=== PATIENT | female | born 1985 | race Caucasian/White ===

== ENCOUNTER → 2020-09-15 | Outpatient (CLI) | payer BC ==
--- NOTE | 2020-09-15 08:49 | MM ---
Reason for exam: clinical finding. Baseline mammogram. History: Family history of breast cancer in maternal grandmother at age 50. Taking hormonal contraceptives beginning at age 15. Physical Findings: Nurse did not find any significant physical abnormalities on exam. MG Diagnostic Mammo w CAD BLANCA Bilateral CC and MLO view(s) were taken. The breast tissue is heterogeneously dense. This may lower the sensitivity of mammography. There is no discrete abnormality including area of concern left nipple region. These results were verbally communicated with the patient and result sheet given to the patient on 09/15/20. ASSESSMENT: Benign, BI-RAD 2 RECOMMENDATION: Routine screening mammogram of both breasts at age 40. Manage on a clinical basis with regard to nipple changes.
== END | disposition home or self-care (01) ==
LOC: RADMAMWWP 07:07
PROVIDERS: ATTEND Obstetrics & Gynecology Obstetrics
DX: Z80.3 Family history of malignant neoplasm of breast (principal)
CPT/HCPCS: 77066

== ENCOUNTER 2021-01-25 09:42 | Emergency (ER) | payer BC ==
[2021-01-25 09:47] VITALS: BP 132/87; PULSE 82; RESP 16; TEMP 98.6
[2021-01-25] MEDS ORDERED: ORPHENADRINE 30 MG/ML 2 ML VIAL IM STA (10:18)
[2021-01-25] MEDS ORDERED: HYDROmorphone 1 MG/ML 1 ML SYRINGE IM STA (10:19)
--- NOTE | 2021-01-25 10:24 | ED ---
Neck Injury/Pain HPI - General Chief Complaint: Neck Pain/Injury Stated Complaint: neck pain Source: patient, RN notes reviewed Mode of arrival: ambulatory Limitations: no limitations - History of Present Illness Initial Comments: 35-year-old white female, alert and oriented 4, presents to the emergency room with complaints of neck pain since December 19. Patient states that she seen her primary care doctor and was prescribed steroids however she states that the muscles are still very tight in her neck and it makes it difficult to sit or get comfortable. She states that she started the steroids yesterday. She also seen a chiropractor yesterday and was told to come to the emergency room for evaluation. Patient was also placed on gabapentin by her primary care Dr. Garcia but states that she still has 10 out of 10 pain. She denies any injuries. No fevers, nausea vomiting or diarrhea. She has no chest pain or shortness of breath. 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 ROS Other: All systems not noted in ROS Statement are negative. Past Medical History Past Medical History: Thyroid Disorder History of Any Multi-Drug Resistant Organisms: None Reported Past Surgical History: Cholecystectomy Past Psychological History: Anxiety, Depression Smoking Status: Never smoker Past Alcohol Use History: Occasional Past Drug Use History: Marijuana General Exam Limitations: no limitations General appearance: alert, in no apparent distress Head exam: Present: atraumatic, normocephalic, normal inspection Eye exam: Present: normal appearance, PERRL, EOMI. Absent: scleral icterus, conjunctival injection, periorbital swelling Pupils: Present: normal accommodation ENT exam: Present: normal exam, normal oropharynx, mucous membranes moist Neck exam: Present: normal inspection, tenderness (Paraspinal), full ROM (Limited by pain). Absent: meningismus, lymphadenopathy, thyromegaly Respiratory exam: Present: normal lung sounds bilaterally. Absent: respiratory distress, wheezes, rales, rhonchi, stridor, chest wall tenderness, accessory muscle use, decreased breath sounds Cardiovascular Exam: Present: regular rate, normal rhythm, normal heart sounds. Absent: systolic murmur, diastolic murmur, rubs, gallop, clicks, JVD GI/Abdominal exam: Present: soft, normal bowel sounds. Absent: distended, tenderness, guarding, rebound, rigid Extremities exam: Present: normal inspection, full ROM, normal capillary refill. Absent: tenderness, pedal edema, joint swelling, calf tenderness Back exam: Present: normal inspection, full ROM, muscle spasm, paraspinal tenderness. Absent: CVA tenderness (R), CVA tenderness (L), vertebral tenderness Neurological exam: Present: alert, oriented X3, CN II-XII intact Psychiatric exam: Present: normal affect, normal mood Skin exam: Present: warm, dry, intact, normal color. Absent: rash, cyanosis, diaphoretic, erythema, petechiae, pallor, mottled Course Vital Signs 01/25/21 09:45 Temperature 98.6 F Pulse Rate 82 Respiratory 16 Rate Blood Pressure 132/87 O2 Sat by Pulse 99 Oximetry Medical Decision Making - Medical Decision Making Patient has no focal neurological deficits. She has a steady gait. She denies any saddle anesthesia or bowel or bladder incontinence. She has no fevers and no recent surgeries. She denies any trauma or history of cancer. She has been seen by her primary care doctor and prescribed steroids which she has just started yesterday. I believe this is musculoskeletal in nature as patient has paraspinal tightness. She was given a muscle relaxer and pain shot and will be prescribed Flexeril and Tylenol #3 for pain relief. She will be directed to follow up with her primary care doctor and also given a referral to orthopedics. Patient is agreeable to this plan of care. Case discussed with Dr. Madden Disposition Clinical Impression: Neck pain Disposition: HOME SELF-CARE Condition: Fair Instructions (If sedation given, give patient instructions): Neck Pain (ED) Additional Instructions: Take medication as prescribed and follow-up with the primary care doctor. Continue your steroids as prescribed by Dr. Garcia. Return if any fevers, incontinence of bowel or bladder, or increased pain. Prescriptions: Cyclobenzaprine [Flexeril] 10 mg PO TID PRN #15 tab PRN Reason: Muscle Spasm Is patient prescribed a controlled substance at d/c from ED?: No Referrals: Supriya Garcia MD [Primary Care Provider] - 1-2 days Jaswant Baker PAC [PHYSICIAN [employer]OM[employer] HEAD] - 1-2 days Time of Disposition: 11:20
[2021-01-25] MEDS ORDERED: ACET/COD 300 MG/30 MG STARTER PACK 6 TAB BTL PO STA (10:30)
== END 2021-01-25 11:20 | disposition home or self-care (01) ==
LOC: EC 09:42
DX: M54.2 Cervicalgia (principal); F32.9 Major depressive disorder, single episode, unspecified; F12.90 Cannabis use, unspecified, uncomplicated; Z90.49 Acquired absence of other specified parts of digestive tract
CPT/HCPCS: 99283; 96372 ×2; J2360; J1170

== ENCOUNTER 2023-04-27 17:52 | Emergency (ER) | payer BC ==
[2023-04-27 18:29] VITALS: BP 108/102; PULSE 100; RESP 20; TEMP 98
[2023-04-28] MEDS ORDERED: LORazepam 1 MG TAB PO STA (00:48)
--- NOTE | 2023-04-28 00:49 | ED ---
Psych HPI - General Chief Complaint: Psychiatric Symptoms Stated Complaint: Mental health Time Seen by Provider: 04/27/23 21:30 Source: patient, family Mode of arrival: ambulatory - History of Present Illness Initial Comments: This patient is 37-year-old woman with history of mood disorder and also anxiety. She states that she had recently been started on new psychiatric medic ation and believes that is giving her a number of side effects. Patient states that she is becoming very anxious about all these and really would like to have medication change. Patient not feeling acutely suicidal. No homicidal ideation. No hallucinations MD Complaint: other -: days(s) Associated Psychiatric Symptoms: racing thoughts Quality: constant Improves With: none Worsens With: medication Associated Symptoms: denies other symptoms - Related Data Home Medications Medication Instructions Recorded Confirmed Aspirin/Acetaminophen/Caffeine 2 tab PO DAILY 04/27/23 04/27/23 [Excedrin Migraine Caplet] Gabapentin 300 mg PO TID 04/27/23 04/27/23 Ibuprofen [Motrin Ib] 800 mg PO BID PRN 04/27/23 04/27/23 Levothyroxine Sodium [Synthroid] 75 mcg PO DAILY 04/27/23 04/27/23 Lurasidone [Latuda] 30 mg PO DAILY 04/27/23 04/27/23 Melatonin 5 mg PO HS 04/27/23 04/27/23 Multivitamins, Thera [Multivitamin 1 tab PO DAILY 04/27/23 04/27/23 (formulary)] diphenhydrAMINE HCL [Benadryl] 25 mg PO HS 04/27/23 04/27/23 lamoTRIgine [LaMICtal] 200 mg PO DAILY 04/27/23 04/27/23 Allergies Allergy/AdvReac Type Severity Reaction Status Date / Time No Known Allergies Allergy Verified 04/27/23 22:18 Review of Systems ROS Statement: Those systems with pertinent positive or pertinent negative responses have been documented in the HPI. ROS Other: All systems not noted in ROS Statement are negative. Constitutional: Denies: fever, chills Eyes: Denies: vision change Respiratory: Denies: cough, dyspnea Cardiovascular: Denies: chest pain, palpitations, syncope Gastrointestinal: Reports: nausea. Denies: abdominal pain, vomiting, diarrhea Genitourinary: Denies: dysuria Musculoskeletal: Denies: back pain Skin: Denies: rash Neurological: Denies: headache, weakness, numbness Psychiatric: Reports: anxiety, depression. Denies: homicidal thoughts, suicidal thoughts Past Medical History Past Medical History: Thyroid Disorder History of Any Multi-Drug Resistant Organisms: None Reported Past Surgical History: Cholecystectomy Past Psychological History: Anxiety, Bipolar, Depression Smoking Status: Never smoker Past Alcohol Use History: Occasional Past Drug Use History: Marijuana General Exam Limitations: no limitations General appearance: alert, in no apparent distress, anxious Head exam: Present: atraumatic, normocephalic Eye exam: Present: normal appearance. Absent: scleral icterus, conjunctival injection Neck exam: Present: normal inspection Respiratory exam: Present: normal lung sounds bilaterally. Absent: respiratory distress, wheezes, rales, rhonchi, stridor Cardiovascular Exam: Present: regular rate, normal rhythm, normal heart sounds. Absent: systolic murmur, diastolic murmur, rubs, gallop GI/Abdominal exam: Present: soft. Absent: distended, tenderness, guarding, rebound, rigid, mass Extremities exam: Present: normal inspection, normal capillary refill Back exam: Present: normal inspection. Absent: CVA tenderness (R), CVA tenderness (L) Neurological exam: Present: alert Psychiatric exam: Present: depressed, anxious. Absent: agitated, flat affect, manic, homicidal ideation, suicidal ideation Skin exam: Present: warm, dry, intact, normal color. Absent: rash Course Vital Signs 04/27/23 18:12 Temperature 98 F Pulse Rate 100 Respiratory 20 Rate Blood Pressure 108/102 O2 Sat by Pulse 98 Oximetry Medical Decision Making - Medical Decision Making Patient is 37-year-old woman here with concerns about side effects related to her new psychiatric medication. The patient was informed that it would take until the morning before should be able to be seen by the emergency psychiatric service. The patient states that in light of that she will go home and attempt to arrange the change as outpatient. She will return if unsuccessful or if any new symptoms develop Was pt. sent in by a medical professional or institution (, PA, LMFT, urgent care, hospital, or fdc...) When possible be specific @ -[No] Did you speak to anyone other than the patient for history (EMS, parent, family, police, friend...)? What history was obtained from this source @ -[No] Did you review nursing and triage notes (agree or disagree)? Why? @ -[I reviewed and agree with nursing and triage notes] Were old charts reviewed (outside hosp., previous admission, EMS record, old EKG, old radiological studies, urgent care reports/EKG's, fdc records)? Report findings @ -[No old charts were reviewed] Differential Diagnosis (chest pain, altered mental status, abdominal pain women, abdominal pain men, vaginal bleeding, weakness, fever, dyspnea, syncope, headache, dizziness, GI bleed, back pain, seizure, CVA, palpatations, mental health, musculoskeletal)? @ -[Differential Mental Health Depression, anxiety, bipolar, psychosis, schizophrenia, borderline personality, situational depression, adjustment disorder, behavioral disorder, brain tumor, malingering, substance abuse, encephalopathy, medication reaction, dementia, hypothyroidism, degenerative neurologic disorder, lupus.... This is not meant to be all-inclusive list EKG interpreted by me (3pts min.). @ -[As above] X-rays interpreted by me (1pt min.). @ -[None done] CT interpreted by me (1pt min.). @ -[None done] U/S interpreted by me (1pt. min.). @ -[None done] What testing was considered but not performed or refused? (CT, X-rays, U/S, labs)? Why? @ -[None] What meds were considered but not given or refused? Why? @ -[None] Did you discuss the management of the patient with other professionals (professionals i.e. , PA, LMFT, lab, RT, psych nurse, social sciences research scientist, show design supervisor, teacher, traffic division commanding officer, correctional counselor/case manager)? Give summary @ -[No] Was smoking cessation discussed for >3mins.? @ -[No] Was critical care preformed (if so, how long)? @ -[No] Were there social determinants of health that impacted care today? How? (Homele ssness, low income, unemployed, alcoholism, drug addiction, transportation, low edu. Level, literacy, decrease access to med. care, nursing home, rehab)? @ -[No] Was there de-escalation of care discussed even if they declined (Discuss DNR or withdrawal of care, Hospice)? DNR status @ -[No] What co-morbidities impacted this encounter? (DM, HTN, Smoking, COPD, CAD, Cancer, CVA, ARF, Chemo, Hep., AIDS, mental health diagnosis, sleep apnea, morbid obesity)? @ -[None] Was patient admitted / discharged? Hospital course, mention meds given and route, prescriptions, significant lab abnormalities, going to OR and other pertinent info. @ -[See above Undiagnosed new problem with uncertain prognosis? @ -[No] Drug Therapy requiring intensive monitoring for toxicity (Heparin, Nitro, Insulin, Cardizem)? @ -[No] Were any procedures done? @ -[No] Diagnosis/symptom? @ -[Acute anxiety Acute, or Chronic, or Acute on Chronic? @ -[Acute Uncomplicated (without systemic symptoms) or Complicated (systemic symptoms)? @ -[Uncomplicated Side effects of treatment? @ -[No] Exacerbation, Progression, or Severe Exacerbation? @ -[No] Poses a threat to life or bodily function? How? (Chest pain, [place], [place], pneumonia, PE, COPD, DKA, ARF, appy, cholecystitis, CVA, Diverticulitis, Homicidal, Suicidal, threat to staff... and all critical care pts) @ -[No] Disposition Clinical Impression: Acute anxiety Disposition: ADMITTED IP TO THIS HOSP Condition: Fair Instructions (If sedation given, give patient instructions): Anxiety (ED) Is patient prescribed a controlled substance at d/c from ED?: No Referrals: Supriya Garcia MD [Primary Care Provider] - 1-2 days
== END 2023-04-28 01:28 | disposition other institution (70) ==
LOC: EC 17:52
DX: F41.9 Anxiety disorder, unspecified (principal); E07.9 Disorder of thyroid, unspecified; F31.9 Bipolar disorder, unspecified; F12.90 Cannabis use, unspecified, uncomplicated; Z79.890 Hormone replacement therapy; Z79.899 Other long term (current) drug therapy; Z79.82 Long term (current) use of aspirin
CPT/HCPCS: 82075; 99285